=== PATIENT | female | born 1960 | race Caucasian/White ===

== ENCOUNTER 2021-02-27 14:36 | Emergency (ER) | payer MEDICAID ==
[~2021-02-27] VITALS: Ht 160 cm; Wt 65.0 kg
[2021-02-27 15:17] LABS: EOSINOPHILS % 1.8 % (0.0-5.0); HEMATOCRIT. 41.6 % (36.0-48.0); LYMPHOCYTES % 43.7 % (20.0-50.0); MEAN CORPUSCULAR HEMOGLOBIN 26.8 pg (28.0-32.0); MEAN CORPUSCULAR VOLUME 79.7 fL (81.0-99.0); MONOCYTES % 5.2 % (2.0-8.0); NEUTROPHILS % 48.3 % (40.0-76.0); PLATELET 288 x1000/uL (130-400); RED BLOOD CELL COUNT 5.22 mill/uL (4.2-5.4); RED CELL DISTRIBUTION WIDTH 13.2 % (11.6-14.6)
[2021-02-27 15:22] LABS: CHLORIDE 103 mEq/L (98-107)
[2021-02-27 19:10] LABS: CLARITY URINE CLEAR (CLEAR); COLOR URINE YELLOW (YELLOW); KETONES URINE NEGATIVE (NEGATIVE); LEUKOCYTE ESTERASE URINE 1+ (NEGATIVE); NITRITE URINE NEGATIVE (NEGATIVE); OCCULT BLOOD URINE NEGATIVE (NEGATIVE); PROTEIN URINE NEGATIVE (NEGATIVE); SPECIFIC GRAVITY URINE 1.007 (1.005-1.030); UROBILINOGEN URINE 0.2 E.U./dL (0.2-1.0)
[2021-02-27] MEDS ORDERED: NITR-87 MT (21:15)
[2021-02-27] MEDS ORDERED: ONDA4TAB11 PO (21:15)
[2021-02-27] MEDS ORDERED: IMOD MT (21:15)
[2021-02-27 21:32] VITALS: BP 118/78
== END 2021-02-27 21:34 | disposition home or self-care (01) ==
LOC: ER 14:36
DX: N39.0 Urinary tract infection, site not specified (principal); R10.32 Left lower quadrant pain; R11.10 Vomiting, unspecified; I10 Essential (primary) hypertension; E78.00 Pure hypercholesterolemia, unspecified; F41.9 Anxiety disorder, unspecified; Z98.890 Other specified postprocedural states; Z88.2 Allergy status to sulfonamides; Z88.0 Allergy status to penicillin
CPT/HCPCS: 36415; 74176; 80053; 81003; 85025; 93005; 99285

== ENCOUNTER 2021-05-05 11:35 | Emergency (ER) | payer MEDICAID ==
[~2021-05-05] VITALS: Ht 160 cm; Wt 64.0 kg
[~2021-05-05 11:35] MED LIST: IMOD MT; NITR-87 MT; ONDA4TAB11 PO
[2021-05-05 13:17] LABS: BASOPHILS % 1.1 % (0.0-2.0); EOSINOPHILS % 1.1 % (0.0-5.0); HEMATOCRIT. 43.1 % (36.0-48.0); HEMOGLOBIN. 14.3 g/dL (12.0-16.0); LYMPHOCYTES % 36.4 % (20.0-50.0); MEAN CORPUSCULAR HEMOGLOBIN 26.7 pg (28.0-32.0); MEAN CORPUSCULAR VOLUME 80.4 fL (81.0-99.0); MEAN PLATELET VOLUME 7.1 fl (7.4-10.4); MONOCYTES % 5.6 % (2.0-8.0); NEUTROPHILS % 55.8 % (40.0-76.0); PLATELET 276 x1000/uL (130-400); RED BLOOD CELL COUNT 5.36 mill/uL (4.2-5.4); RED CELL DISTRIBUTION WIDTH 13.5 % (11.6-14.6)
[2021-05-05 13:23] LABS: CHLORIDE 106 mEq/L (98-107)
[2021-05-05 14:48] LABS: CLARITY URINE CLEAR (CLEAR); COLOR URINE YELLOW (YELLOW); KETONES URINE NEGATIVE (NEGATIVE); LEUKOCYTE ESTERASE URINE NEGATIVE (NEGATIVE); NITRITE URINE NEGATIVE (NEGATIVE); OCCULT BLOOD URINE NEGATIVE (NEGATIVE); PH URINE 6.5 (4.5-8.0); PROTEIN URINE NEGATIVE (NEGATIVE); SPECIFIC GRAVITY URINE 1.004 (1.005-1.030); UROBILINOGEN URINE 0.2 E.U./dL (0.2-1.0)
[2021-05-05 14:58] VITALS: BP 140/80
[2021-05-05] MEDS ORDERED: ONDA4TAB5 MT (15:02)
[2021-05-05] MEDS ORDERED: IBUP-2029 MT (15:02)
[2021-05-05] MEDS ORDERED: HYDROCODONE/ACETAMINOPHEN 5/325MG TABLET PO NR (15:15)
[2021-05-05] MEDS ORDERED: ONDANSETRON 4MG ODT PO NR (15:15)
== END 2021-05-05 15:20 | disposition home or self-care (01) ==
LOC: ER 11:35
DX: N20.0 Calculus of kidney (principal); R10.32 Left lower quadrant pain; F41.9 Anxiety disorder, unspecified; E78.00 Pure hypercholesterolemia, unspecified; I10 Essential (primary) hypertension; Z98.890 Other specified postprocedural states; Z88.2 Allergy status to sulfonamides; Z88.0 Allergy status to penicillin
CPT/HCPCS: 36415; 74176; 80053; 81003; 83690; 84484; 85025; 93005; 99285; Q0162

== ENCOUNTER 2021-11-26 19:24 | Emergency (ER) | payer MEDICAID ==
[~2021-11-26] VITALS: Ht 160 cm; Wt 63.2 kg
[~2021-11-26 19:24] MED LIST changes: +IBUP-2029 MT; +ONDA4TAB5 MT
[2021-11-26 21:46] LABS: CLARITY URINE CLEAR (CLEAR); COLOR URINE YELLOW (YELLOW); KETONES URINE NEGATIVE (NEGATIVE); LEUKOCYTE ESTERASE URINE 1+ (NEGATIVE); NITRITE URINE NEGATIVE (NEGATIVE); OCCULT BLOOD URINE NEGATIVE (NEGATIVE); PH URINE 7.5 (4.5-8.0); PROTEIN URINE NEGATIVE (NEGATIVE); SPECIFIC GRAVITY URINE 1.005 (1.005-1.030); UROBILINOGEN URINE 0.2 E.U./dL (0.2-1.0)
[2021-11-27] MEDS ORDERED: KETOROLAC 60MG/2ML VIAL IM NR ×2 (00:57→05:15)
[2021-11-27] MEDS ORDERED: CEFTRIAXONE 1 G PREMIX 50 ML IV NR (01:00)
[2021-11-27 01:41] LABS: BASOPHILS % 0.8 % (0.0-2.0); EOSINOPHILS % 1.5 % (0.0-5.0); HEMATOCRIT. 46.3 % (36.0-48.0); HEMOGLOBIN. 15.3 g/dL (12.0-16.0); LYMPHOCYTES % 39.1 % (20.0-50.0); MEAN CORPUSCULAR HEMOGLOBIN 27.1 pg (28.0-32.0); MEAN CORPUSCULAR VOLUME 81.8 fL (81.0-99.0); MEAN PLATELET VOLUME 7.1 fl (7.4-10.4); MONOCYTES % 6.4 % (2.0-8.0); NEUTROPHILS % 52.2 % (40.0-76.0); PLATELET 269 x1000/uL (130-400); RED BLOOD CELL COUNT 5.67 mill/uL (4.2-5.4); RED CELL DISTRIBUTION WIDTH 13.7 % (11.6-14.6)
[2021-11-27 01:48] LABS: CHLORIDE 104 mEq/L (98-107)
[2021-11-27] MEDS ORDERED: CEPH500C2 MT (04:58)
[2021-11-27 05:13] VITALS: BP 130/80
== END 2021-11-27 05:41 | disposition home or self-care (01) ==
LOC: ER 19:24
DX: N39.0 Urinary tract infection, site not specified (principal); R10.9 Unspecified abdominal pain; I10 Essential (primary) hypertension; E78.00 Pure hypercholesterolemia, unspecified; Z88.2 Allergy status to sulfonamides; Z88.3 Allergy status to other anti-infective agents; Z87.442 Personal history of urinary calculi; Z98.890 Other specified postprocedural states
CPT/HCPCS: 36415; 74176; 80053; 81003; 83690; 85025; 96365; 96372; 99284; J0696; J1885

== ENCOUNTER 2022-11-25 16:44 | Emergency (ER) | payer MEDICAID ==
[~2022-11-25] VITALS: Ht 160 cm; Wt 61.0 kg
[~2022-11-25 16:44] MED LIST changes: +CEPH500C2 MT
[2022-11-25 17:05] VITALS: BP 133/80; PULSE 92; RESP 18; TEMP 97.8; O2SAT 100
[2022-11-25 17:40] LABS: CLARITY URINE CLEAR (CLEAR); COLOR URINE YELLOW (YELLOW); GLUCOSE URINE NEGATIVE (NEGATIVE); KETONES URINE NEGATIVE (NEGATIVE); LEUKOCYTE ESTERASE URINE NEGATIVE (NEGATIVE); NITRITE URINE NEGATIVE (NEGATIVE); OCCULT BLOOD URINE NEGATIVE (NEGATIVE); PROTEIN URINE NEGATIVE (NEGATIVE); SPECIFIC GRAVITY URINE 1.003 (1.005-1.030); UROBILINOGEN URINE 0.2 E.U./dL (0.2-1.0)
[2022-11-25] MEDS ORDERED: KETOROLAC 60MG/2ML VIAL IM ONE (18:30)
[2022-11-25] MEDS ORDERED: IBUP-2028 MT (22:03)
[2022-11-25] MEDS ORDERED: TOPUD PO (22:03)
== END 2022-11-26 01:13 | disposition home or self-care (01) ==
LOC: ER 16:44
DX: N23 Unspecified renal colic (principal); E78.00 Pure hypercholesterolemia, unspecified; I10 Essential (primary) hypertension; Z87.442 Personal history of urinary calculi; Z98.890 Other specified postprocedural states; Z88.2 Allergy status to sulfonamides; Z88.8 Allergy status to other drugs, medicaments and biological substances
CPT/HCPCS: 81003; 99283

== ENCOUNTER 2024-04-15 13:53 | Emergency (ER) | payer MEDICAID ==
[~2024-04-15] VITALS: Ht 162.6 cm; Wt 65.7 kg
[~2024-04-15 13:53] MED LIST changes: +IBUP-2028 MT; +ONDA-239 PO; -ONDA4TAB11 PO; +TOPUD PO
[2024-04-15 14:02] VITALS: TEMP 37; O2SAT 100
[2024-04-15 14:38] LABS: CLARITY URINE CLEAR (CLEAR); COLOR URINE YELLOW (YELLOW); GLUCOSE URINE NEGATIVE (NEGATIVE); KETONES URINE NEGATIVE (NEGATIVE); LEUKOCYTE ESTERASE URINE 2+ (NEGATIVE); NITRITE URINE NEGATIVE (NEGATIVE); OCCULT BLOOD URINE NEGATIVE (NEGATIVE); PH URINE 6.5 (4.5-8.0); PROTEIN URINE NEGATIVE (NEGATIVE); SPECIFIC GRAVITY URINE 1.007 (1.005-1.030); UROBILINOGEN URINE 0.2 E.U./dL (0.2-1.0)
[2024-04-15 14:53] LABS: EOSINOPHILS % 1.4 % (0.0-5.0); HEMATOCRIT. 43.3 % (36.0-48.0); HEMOGLOBIN. 14.2 g/dL (12.0-16.0); LYMPHOCYTES % 33.1 % (20.0-50.0); MEAN CORPUSCULAR HEMOGLOBIN 27.2 pg (28.0-32.0); MEAN CORPUSCULAR HGB CONC 32.9 g/dL (31.0-37.0); MEAN CORPUSCULAR VOLUME 82.9 fL (81.0-99.0); MEAN PLATELET VOLUME 7.4 fl (7.4-10.4); MONOCYTES % 5.5 % (2.0-8.0); PLATELET 281 x1000/uL (130-400); RED BLOOD CELL COUNT 5.22 mill/uL (4.2-5.4); RED CELL DISTRIBUTION WIDTH 13.3 % (11.6-14.6); WHITE BLOOD COUNT 9.5 x1000/uL (4.5-11.0)
[2024-04-15 14:56] LABS: BACTERIA URINE TRACE; RBC URINE 0-2 /hpf (0-2); SQUAMOUS EPITHELIAL CELL URINE 1+ /lpf (RARE/1+); YEAST URINE NONE SEEN
[2024-04-15 15:00] LABS: CHLORIDE 103 mEq/L (98-107); POTASSIUM 3.9 mEq/L (3.5-5.1); SODIUM 139 mEq/L (136-145)
[2024-04-15 15:01] LABS: CARBON DIOXIDE 28 mEq/L (21-32)
[2024-04-15 15:02] LABS: CALCIUM 10.2 mg/dL (8.7-10.4)
[2024-04-15 15:07] LABS: GLUCOSE 119 mg/dL (70-105); UREA NITROGEN BLOOD 11 mg/dL (9-23)
[2024-04-15 15:08] LABS: ALANINE AMINOTRANSFERASE 17 IU/L (10-49); ASPARTATE AMINOTRANSFERASE 21 IU/L (<34)
[2024-04-15 15:09] LABS: BILIRUBIN DIRECT 0.1 mg/dL (<=3.0); BILIRUBIN TOTAL 0.5 mg/dL (0.1-1.0); PROTEIN TOTAL 7.7 g/dL (6.0-8.3)
[2024-04-15 15:29] LABS: TROPONIN I HIGH SENSITIVITY < 4 ng/L (3.0-34)
[2024-04-15] MEDS ORDERED: ACET-2708 MT (19:13)
[2024-04-15] MEDS ORDERED: NITR100C MT (19:13)
[2024-04-15 19:45] VITALS: BP 147/86; PULSE 94; RESP 16; O2SAT 100
[2024-04-15] MEDS ORDERED: TAMS-11 MT (20:20)
== END 2024-04-15 19:50 | disposition home or self-care (01) ==
LOC: ER 13:53
DX: N20.0 Calculus of kidney (principal); N39.0 Urinary tract infection, site not specified; E78.00 Pure hypercholesterolemia, unspecified; I10 Essential (primary) hypertension; Z88.0 Allergy status to penicillin; Z88.2 Allergy status to sulfonamides; Z98.890 Other specified postprocedural states
CPT/HCPCS: 36415; 74176; 80048; 80076; 81003; 84484; 85025; 93005; 99284